=== PATIENT | female | born 1950 | race Caucasian/White ===

== ENCOUNTER → 2020-12-05 | Outpatient (CLI) | payer BC ==
--- NOTE | 2020-12-05 17:01 | KCIC ---
Site ID: [id number] EXAMINATION: XR LUMBAR SPINE 2-3V. HISTORY: 69 years Female Reason: ACUTE LBP WITHOUT SCIATICA, HX OF 2 RECENT FALLS / COMPARISON: None. FINDINGS: The alignment of the posterior spinal line is satisfactory. The vertebral body heights are preserved. Disc heights are also preserved. Multilevel anterior osteophytes are noted. No posterior osteophytes is seen. The paraspinal soft tissues demonstrate surgical clips at the upper right abdomen. There is also indeterminant calcification in the left flank could relate to a kidney stone. There is also sug gestion of right upper quadrant calcifications mimicking appearance of gallstones however the surgica l clips could be related to prior cholecystectomy. Correlate with surgical history. Moderate amount o f fecal material seen in the colon. The SI joints demonstrate mild degenerative changes. IMPRESSION: Mild degenerative changes in the lumbar spine. Left flank calcification is probably a kidney stone. I ndeterminate right upper quadrant calcifications, if there is no history of cholecystectomy, these co uld represent gallbladder stones. Constipation. Electronically signed by: Valeriy Spring MD (12/05/2020 4:59 PM) [id number]
--- NOTE | 2020-12-05 17:03 | KCIC ---
Site ID: [id number] EXAMINATION: XR FINGER(S)_LEFT 2+VIEWS_RT. HISTORY: 69 years Female Reason: INJURY OF LEFT HAND/5TH DIGIT S/P 2 RECENT FALLS / Spl. Instructio ns: / History: . COMPARISON: None. FINDINGS: There is a 3 mm the avulsion fracture from seen along the posterior aspect of the base of the middle phalanx of the little the finger. There is a 4 mm retraction. There is prominent degenerative change seen at the DIP joint. IMPRESSION: Retracted avulsion fracture the dorsal aspect of the base of the middle phalanx of the left little fi nger. Electronically signed by: Valeriy Spring MD (12/05/2020 5:01 PM) [id number]
--- NOTE | 2020-12-05 17:06 | KCIC ---
Site ID: [id number] EXAMINATION: XR EXAM OF ANKLE_LEFT 3V. HISTORY: 69 years Female Reason: ACUTE LEFT ANKLE PAIN S/P 2 RECENT FALLS / Spl. COMPARISON: None. FINDINGS: No fracture, dislocation or radiopaque foreign body. There is mild joint space narrowing at the an kle joint. There is also in the talus a relatively large subchondral cyst formation which is presumab ly degenerative in etiology. It is 1.5 cm in size. No definite the violation of the cortex of the sheryl us. IMPRESSION: 1.5 cm lucency along the subchondral aspect of the talus medially could represent a geode or other cynthia ne cyst. Clinical exam and follow-up studies are recommended. No acute fracture. Electronically signed by: Valeriy Spring MD (12/05/2020 5:04 PM) [id number]
== END ==
LOC: KCIC 09:06
PROVIDERS: ATTEND Nurse Practitioner Gerontology
DX: S62.627A Displaced fracture of middle phalanx of left little finger, initial encounter for closed fracture (principal); S69.92XA Unspecified injury of left wrist, hand and finger(s), initial encounter; M25.572 Pain in left ankle and joints of left foot; M54.5 Low back pain; K59.00 Constipation, unspecified; X58.XXXA Exposure to other specified factors, initial encounter; Y93.89 Activity, other specified; Y92.89 Other specified places as the place of occurrence of the external cause; Y99.8 Other external cause status
CPT/HCPCS: 72100; 73140; 73610

== ENCOUNTER 2021-04-27 06:54 | Emergency (ER) | payer BC ==
[~2021-04-27] VITALS: Ht 154.9 cm; Wt 73.0 kg
--- NOTE | 2021-04-27 07:26 | PHYS DOC ---
Past Medical History Smoking Status: Never Smoker Alcohol Use: Rarely General Adult EDM: Chief Complaint: SKIN PROBLEM HPI: HPI: Patient is a 70 year old female who presents with a rash and pain in her left hand. Over the past several days the rash has been on the pinky side of the palm and goes into the pinky and ring finger. Does not affect the other side of the hand. Does not affect anywhere else on the body. Denies any open sores initially. Denies fever/chills. No recent contact with any irritants, bleaches, alkali etc. She did try using Aspercreme on this area and she was concerned it may have made the pain worse. She does report that she has a chronic peripheral neuropathy in her bilateral hands. She does report she has previously had chicken pox. Is not vaccinated against zoster. No new meds. Is on venlafaxine and meds for her asthma. Review of Systems: Review of Systems: Constitutional: Denies fever or chills. [] Eyes: Denies change in visual acuity. [] HENT: Denies nasal congestion or sore throat. [] Respiratory: Denies cough or shortness of breath. [] Cardiovascular: Denies chest pain or edema. [] GI: Denies abdominal pain, nausea, vomiting, bloody stools or diarrhea. [] : Denies dysuria. [] Musculoskeletal: Denies back pain or joint pain. [] Integument: Reports left hand rash Neurologic: Denies headache, focal weakness or sensory changes. [] Endocrine: Denies polyuria or polydipsia. [] Lymphatic: Denies swollen glands. [] Psychiatric: Denies depression or anxiety. [] Heart Score: C/O Chest Pain: No Risk Factors: Risk Factors: DM, Current or recent (<one month) smoker, HTN, HLP, family history of CAD, obesity. Risk Scores: Score 0 - 3: 2.5% MACE over next 6 weeks - Discharge Home Score 4 - 6: 20.3% MACE over next 6 weeks - Admit for Clinical Observation Score 7 - 10: 72.7% MACE over next 6 weeks - Early Invasive Strategies Allergies: Allergies: Allergies Coded Allergies Type Severity Reaction Last Updated Verified No Known Drug Allergies 04/27/21 No Physical Exam: PE: Constitutional: Well developed, well nourished, no acute distress, non-toxic appearance. [] HENT: Normocephalic, atraumatic, bilateral external ears normal, oropharynx moist, no oral exudates, nose normal. [] Eyes: PERRLA, EOMI, conjunctiva normal, no discharge. [] Neck: Normal range of motion, no tenderness, supple, no stridor. [] Cardiovascular:Heart rate regular rhythm, no murmur [] Lungs & Thorax: Bilateral breath sounds clear to auscultation [] Abdomen: Bowel sounds normal, soft, no tenderness, no masses, no pulsatile masses. [] Skin: Vesiculopapular rash on the medial palm and the fourth and fifth fingers on the left. Sharply demarcates across the palm. Follows a C8 dermatome. No other areas of rash identified. No bullae. No mucosal involvement. Extremities: Radial and ulnar pulses 2+ on the left. Brisk cap refill to all 5 fingers. Neurologic: Alert and oriented X 3, normal motor function, normal sensory function, no focal deficits noted. [] Psychologic: Affect normal, judgement normal, mood normal. [] EKG: EKG: Sinus rhythm. Rate 101. Left axis deviation. QTc 442. [] Radiology/Procedures: Radiology/Procedures: [] Course & Med Decision Making: Course & Med Decision Making Pertinent Labs and Imaging studies reviewed. (See chart for details) Patient is 70-year-old female presents with a left hand rash. Appears to follow a C8 dermatome and is consistent with a zoster rash. She also has a history of chickenpox and is not vaccinated against zoster raising suspicion for this. Reviewed her medication list, no common causes of DRESS, no mucosal involvement. Doubt SJS. Does not have a syphillitic appearance. No murmur, fever/chills, or other risk factors for endocarditis. Rash does not appear c/w janeway/osler lesions. Has no other palmar/sole rash. Will treat w/ valacyclovir and analagesics and will ask that she follow with her PCP in the next few days. 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 Labs without eosinophilia. Mild hypokalemia 2.9. Will replace PO. Dragon Disclaimer: Alan Disclaimer: This electronic medical record was generated, in whole or in part, using a voice recognition dictation system. Departure Departure Impression: Primary Impression: Zoster Disposition: HOME / SELF CARE / HOMELESS Condition: STABLE Referrals: MARIA DOLORES LEON APRN (PCP) Please see your PCP in the next 3 days. Patient Instructions: Shingles Additional Instructions: Believe that you have a shingles infection. We will treat you with an antiviral medication called valacyclovir. Please take the full prescription of this. For pain tylenol and ibuprofen are best used on a schedule. Please alternate between the two. -Tylenol 1000 mg every 6 hours (do not exceed 4000 mg in one day) -Ibuprofen 400 mg every 6 hours. Take with food. Do not take for more than 1 week. Your potassium was slightly low at 2.9. Please take the potassium supplement prescribed for the next 5 days. This will need to be followed up to ensure that it is improving. You will need a repeat lab with your PCP. Please follow-up with your PCP this week, I want to see that your rash is improving and not spreading. Begins to spread to different areas we may need to consider other diagnoses. Scripts Potassium Chloride (Potassium Chloride) 20 Meq Tablet.er 20 MEQ PO DAILY for 5 Days, #5 TAB.SR 0 Refills Prov: KLYEIGH RIOS MD 04/27/21 Valacyclovir Hcl (VALACYCLOVIR) 1,000 Mg Tablet 1 TAB PO TID for 7 Days, #21 TAB 0 Refills Prov: KYLEIGH RIOS MD 04/27/21 KYLEIGH RIOS MD Apr 27, 2021 07:26
[2021-04-27 08:16] LABS: ALBUMIN 3.7 g/dL (3.4-5.0); ALBUMIN/GLOBULIN RATIO 1.1 (1.0-1.7); CALCIUM 8.9 mg/dL (8.5-10.1); CREATININE 0.8 mg/dL (0.6-1.0); GFR 70.5; TOTAL BILIRUBIN 0.2 mg/dL (0.2-1.0); TOTAL PROTEIN 7.2 g/dL (6.4-8.2)
[2021-04-27 08:19] LABS: POTASSIUM 2.9 mmol/L (3.5-5.1)
[2021-04-27 08:26] VITALS: BP 143/65
[2021-04-27 08:26] LABS: BASO # 0.1 x10^3/uL (0.0-0.2); BASO % 1 % (0-3); EOS % 0 % (0-3); HEMATOCRIT 40.8 % (36.0-47.0); HEMOGLOBIN 13.3 g/dL (12.0-15.5); LYMPH # 1.8 x10^3/uL (1.0-4.8); LYMPH % 21 % (24-48); MEAN CORPUSCULAR HEMOGLOBIN 29 pg (25-35); MEAN CORPUSCULAR HGB CONC 33 g/dL (31-37); MEAN CORPUSCULAR VOLUME 87 fL (79-100); MONO % 11 % (0-9); NEUT % 67 % (31-73); PLATELET COUNT 342 x10^3/uL (140-400); RED BLOOD COUNT 4.66 x10^6/uL (3.50-5.40); RED CELL DISTRIBUTION WIDTH 14.9 % (11.5-14.5); WHITE BLOOD COUNT 8.9 x10^3/uL (4.0-11.0)
[2021-04-27] MEDS ORDERED: POTASSIUM CHLORIDE 20 MEQ TABLET.ER. PO ONE (08:30)
[2021-04-27] MEDS ORDERED: IBUPROFEN 400 MG TABLET. PO ONE (08:45)
[2021-04-27] MEDS ORDERED: POTA-163 PO (08:52)
[2021-04-27] MEDS ORDERED: VALA10008 PO (08:52)
--- NOTE | 2021-04-27 10:41 | EKG ---
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
== END 2021-04-27 09:00 | disposition home or self-care (01) ==
LOC: ER 06:54
DX: B02.9 Zoster without complications (principal); M79.642 Pain in left hand
CPT/HCPCS: 36415; 80053; 85025; 93005; 99284

== ENCOUNTER → 2021-07-08 | Outpatient (CLI) | payer BC ==
[~2021-07-08] MED LIST: POTA-163 PO; VALA10008 PO
--- NOTE | 2021-07-08 15:24 | KCIC ---
EXAM: Brain MRI without contrast. HISTORY: Weakness. Gait disorder. TECHNIQUE: Multiplanar, multisequence magnetic resonance imaging of the brain was performed without i ntravenous contrast. COMPARISON: None. FINDINGS: There is no restricted diffusion to suggest acute or subacute infarction. There is no mass effect or midline shift. There is no hydrocephalus. There is a focus of susceptibility effect within the right frontal lobe likely due to chronic microhemorrhage or a tiny cavernoma. There is also a tin y focus of suspected microhemorrhage within the right temporal lobe. There is mild cerebral volume loss. There are scattered areas of signal change within the cerebral wh ite matter and within the apurva, likely due to chronic small vessel disease in a patient of this age. The orbits are unremarkable. There is a tiny left maxillary sinus mucous retention cyst. The mastoid air cells are clear. There are normal flow voids within the cerebral vessels. There is no suspicious calvarial lesion. There is a prominent pituitary with superior convex margin. IMPRESSION: 1. No acute intracranial finding. 2. Scattered areas of signal change within the cerebral white matter and apurva, a nonspecific finding which is most commonly due to chronic small vessel disease in patients of this age. 3. Cerebral volume loss. 4. Tiny cavernoma or chronic microhemorrhage within the right frontal lobe and additional tiny focus of chronic microhemorrhage within the right temporal lobe. 5. Prominent pituitary with superior convex margin. This may be physiologic, but is not typical for a patient of this age. Correlate for possible endocrinopathy. Pituitary protocol MRI can be performed if this concern for an occult adenoma. Electronically signed by: Yissel Stearns MD (07/08/2021 3:22 PM) [id number]
--- NOTE | 2021-07-08 15:42 | KCIC ---
EXAM: Cervical spine MRI without contrast. HISTORY: Neuropathy. TECHNIQUE: Multiplanar, multisequence magnetic resonance imaging of the cervical spine was performed without contrast. COMPARISON: None. FINDINGS: There is cervical kyphosis and mild multilevel degenerative listhesis. There is degenerativ e endplate remodeling with disc space narrowing and osteophytosis primarily at C6-C7. There is no fra cture or suspicious osseous lesion. There is abnormal signal within the bilateral dorsal aspect of th e spinal cord at C5 and C6, the appearance of which favors changes due to myelomalacia rather than ed rosalio. There is nonspecific signal change within the visualized cerebral white matter and apurva, most commonl y due to chronic small vessel disease in patients of this age. At C2-C3, there is mild right and moderate left facet arthropathy. There is minimal right foraminal s tenosis. At C3-C4, there is a disc bulge and endplate remodeling. There is mild right and severe left facet ar thropathy. There is bilateral uncovertebral arthropathy. There is mild left foraminal stenosis. At C4-C5, there is disc bulge and endplate remodeling. There is moderate right and severe left facet arthropathy. There is bilateral uncovertebral arthropathy. There is moderate right and severe left fo raminal stenosis. There is mild central canal stenosis measuring 9.0 mm in anterior posterior dimensi on. At C5-C6, there is a disc bulge and endplate osteophytosis. There is moderate right and severe left f acet arthropathy. There is bilateral uncovertebral arthropathy. There is severe bilateral foraminal s tenosis. There is severe central canal stenosis measuring 6.6 cm in anterior posterior dimension. At C6-C7, there is a disc bulge and endplate osteophytosis. There is mild bilateral facet arthropathy . There is bilateral uncovertebral arthropathy. There is moderate to severe bilateral foraminal steno sis. There is moderate central canal stenosis measuring 7.5 mm in anterior posterior dimension. IMPRESSION: 1. Multilevel degenerative change involving the cervical spine, described in detail above. This resul ts in significant foraminal and central canal stenosis at the aforementioned levels. 2. Abnormal signal within the bilateral dorsal aspect of the cervical spinal cord at C5 and C6, the a ppearance of which favors myelomalacia due to chronic stenosis greater than edema. Electronically signed by: Yissel Stearns MD (07/08/2021 3:40 PM) [id number]
== END ==
LOC: KCIC MRI 13:42
PROVIDERS: ATTEND Psychiatry & Neurology Neurology with Special Qualifications in Child Neurology
DX: J34.1 Cyst and mucocele of nose and nasal sinus (principal); R90.82 White matter disease, unspecified; G93.89 Other specified disorders of brain; G62.9 Polyneuropathy, unspecified; R53.1 Weakness; R26.9 Unspecified abnormalities of gait and mobility; M47.812 Spondylosis without myelopathy or radiculopathy, cervical region; M48.02 Spinal stenosis, cervical region; M50.21 Other cervical disc displacement, high cervical region; M43.12 Spondylolisthesis, cervical region; M40.292 Other kyphosis, cervical region; M25.78 Osteophyte, vertebrae; M48.8X2 Other specified spondylopathies, cervical region
CPT/HCPCS: 70551; 72141